=== PATIENT | male | born 1950 | race Caucasian/White ===

== ENCOUNTER 2024-04-21 10:18 | Day surgery (SDC) | payer MEDICARE, BC ==
[~2024-04-21] VITALS: Ht 177.8 cm; Wt 106.9 kg
[2024-04-21] VITALS (10 sets, daily range): BP systolic 103–157; BP diastolic 63–95; PULSE 71–94; RESP 12–16; TEMP 99.2; O2SAT 93–97
[2024-04-21] MEDS: normal saline 1000ml 1,000 ML IV SCH (11:00)
[2024-04-21] MEDS ORDERED: SOTA80TA73 PO (11:08)
[2024-04-21] MEDS ORDERED: RIVA20TA PO (11:08)
[2024-04-21] MEDS ORDERED: MULT1CAP20 (11:08)
[2024-04-21] MEDS ORDERED: APRE30TA5 PO (11:08)
[2024-04-21] MEDS ORDERED: GINK120C PO (11:08)
[2024-04-21] MEDS ORDERED: GABA-535 PO (11:08)
[2024-04-21] MEDS ORDERED: LEVO100T9 PO (11:08)
[2024-04-21] MEDS ORDERED: FOLI0.4T6 PO (11:08)
[2024-04-21] MEDS ORDERED: BUPR2TAB11 PO (11:08)
[2024-04-21] MEDS ORDERED: LORA-512 PO (11:08)
[2024-04-21] MEDS ORDERED: METH2.5T55 PO (11:08)
[2024-04-21] MEDS ORDERED: KEN0.1O (11:08)
[2024-04-21] MEDS: MIDAZolam 1mg/ml 10ml vial IV ONE (13:55)
[2024-04-21] MEDS: fentaNYL/PF 50MCG/1 ML 2ML syringe IV ONE (13:55)
== END 2024-04-21 15:00 | disposition home or self-care (01) ==
LOC: SSTAY O 10:18
PROVIDERS: ATTEND Student in an Organized Health Care Education/Training Program
DX: I48.91 Unspecified atrial fibrillation (principal); Z53.8 Procedure and treatment not carried out for other reasons; I10 Essential (primary) hypertension; Z79.01 Long term (current) use of anticoagulants; Z79.890 Hormone replacement therapy; Z79.899 Other long term (current) drug therapy; Z88.8 Allergy status to other drugs, medicaments and biological substances
CPT/HCPCS: 93005; J2250; J3010; J7030; Z7610; 92960